=== PATIENT | female | born 2000 | race African-American/Black ===

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

== ENCOUNTER 2022-02-09 14:34 | Observation (INO) | payer MEDICAID ==
[~2022-02-09] VITALS: Ht 160 cm; Wt 109.8 kg
[~2022-02-09 14:34] MED LIST changes: +PREN-188 PO; -SODIUM CHLORIDE 0.9% 1000ML 1,000 ML IV ONE
[2022-02-09 14:36] VITALS: BP 109/70
== END 2022-02-09 17:20 | disposition home or self-care (01) ==
LOC: EDH 14:34 → LDH 14:35
PROVIDERS: ADMIT Internal Medicine; ATTEND Internal Medicine
DX: O62.9 Abnormality of forces of labor, unspecified (principal); Z3A.31 31 weeks gestation of pregnancy
CPT/HCPCS: 59025; G0378 ×3; G0379